=== PATIENT | female | born 1940 | race Caucasian/White ===

== ENCOUNTER 2018-05-30 06:17 | Emergency (ER) | payer OTHER ==
[~2018-05-30] VITALS: Ht 167.6 cm; Wt 131.5 kg
--- NOTE | ~2018-05-30 | EKG ---
[place] [address] 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 : 1940 Requested By: Jesse Farley Order Number: [id number] MD: Ghassan Edge Measurements Intervals [place] Rate: 64 P: -18 SC: 60 QRS: 5 QRSD: 118 T: 90 QT: 449 QTc: 464 Interpretive Statements Sinus rhythm Short SC interval Incomplete left bundle branch block Compared to ECG 05/11/2002 23:40:34 Short SC interval now present Left bundle-branch block now present Electronically Signed On 05-30-2018 13:53:34 CDT by Ghassan Edge [email or web address] <ELECTRONICALLY SIGNED> By: Ghassan Edge MD, [facility] 05/30/18 1353 0629 8 Ghassan Edge MD, [facility] /EPI
[~2018-05-30 06:17] MED LIST: ASPIRIN325; ATENOLOL; IBUPROFEN; K-DUR10 ME1; KEFLEX500 MG; LISINOPRIL-HCT1 EAC1; NORCO 5-325 TA1 EACH PO; PENICILLIN V P500 MG PO; PERCOCET 5-3251 EACH PO; PREVACID30 MG PO; TIROSINT112 MCG; TRIBENZOR 40-51 EACH PO
[2018-05-30 07:23] LABS: ABSOLUTE NEUTROPHILS 6.1 thou/uL (1.4-8.2); BASOPHILS 0.6 % (0.0-2.0); EOSINOPHILS 2.9 % (0.0-3.0); HEMATOCRIT 32.1 % (37.0-47.0); LYMPHOCYTES 28.3 % (24.0-44.0); MCH 40.5 pg (26.0-34.0); MCHC 43.6 g/dL (28.0-37.0); MCV 92.9 fL (80.0-100.0); MONOCYTES 8.4 % (1.0-8.0); PLATELET COUNT 185 thou/uL (150-400); POLYS 59.8 % (36.0-66.0); RBC 3.45 mil/uL (4.20-5.00); RDW 13.2 % (10.5-14.5); WBC 10.2 thou/uL (4.0-11.0)
[2018-05-30 07:24] LABS: CALCIUM 9.1 mg/dL (8.5-10.1); POTASSIUM 3.4 mmol/L (3.5-5.1)
[2018-05-30 07:30] LABS: ALBUMIN 3.6 g/dL (3.4-5.0); TOTAL BILIRUBIN 1.2 mg/dL (<0.1-1.0); TOTAL PROTEIN 7.2 g/dL (6.4-8.2)
[2018-05-30 08:29] LABS: URINE BILIRUBIN NEGATIVE (Negative); URINE BLOOD NEGATIVE (Negative); URINE CLARITY CLEAR; URINE COLOR YELLOW; URINE GLUCOSE-RANDOM* NEGATIVE (Negative); URINE KETONES NEGATIVE (Negative); URINE LEUKOCYTES-REFLEX NEGATIVE (Negative); URINE NITRITE-REFLEX NEGATIVE (Negative); URINE PROTEIN (DIPSTICK) NEGATIVE (Negative); URINE UROBILINOGEN 0.2 E.U./dl (0.2-1.0)
[2018-05-30] MEDS ORDERED: FLAGYL500 MG PO (10:41)
[2018-05-30] MEDS ORDERED: ULTRAM 50MG TAB50 MG PO (10:41)
[2018-05-30] MEDS ORDERED: CIPROFLOXACIN500 M1 PO (10:41)
[2018-05-30] MEDS ORDERED: ZOFRAN ODT4 MG PO (10:41)
[2018-05-30 11:01] VITALS: BP 154/61
== END 2018-05-30 11:02 | disposition home or self-care (01) ==
LOC: ER 06:17
PROVIDERS: Emergency Medicine
DX: K52.9 Noninfective gastroenteritis and colitis, unspecified (principal); E80.7 Disorder of bilirubin metabolism, unspecified; R74.8 Abnormal levels of other serum enzymes; Z88.8 Allergy status to other drugs, medicaments and biological substances; I10 Essential (primary) hypertension; E03.9 Hypothyroidism, unspecified; K21.9 Gastro-esophageal reflux disease without esophagitis; Z90.49 Acquired absence of other specified parts of digestive tract; Z90.710 Acquired absence of both cervix and uterus

== ENCOUNTER 2018-08-24 08:47 | Emergency (ER) | payer OTHER ==
[~2018-08-24] VITALS: Ht 167.6 cm; Wt 127.0 kg
--- NOTE | ~2018-08-24 | EKG ---
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 : 1940 Requested By: Yenni Charlton Order Number: [id number] MD: Ghassan Edge Measurements Intervals [place] Rate: 70 P: 52 ID: [id number] QRS: -11 QRSD: 118 T: 109 QT: 420 QTc: 454 Interpretive Statements Sinus rhythm Occasional atrial premature complexes Left bundle branch block Compared to ECG 05/30/2018 06:29:37 Atrial premature complexes now present Electronically Signed On 08-25-2018 8:00:21 CDT by Ghassan Edge [email or web address] <ELECTRONICALLY SIGNED> By: Ghassan Edge MD, [facility] 08/25/18 0800 Ghassan Edge MD, FAC /EPI
[~2018-08-24 08:47] MED LIST changes: +CIPROFLOXACIN500 M1 PO; +FLAGYL500 MG PO; +ULTRAM 50MG TAB50 MG PO; +ZOFRAN ODT4 MG PO
[2018-08-24 09:09] LABS: URINE BILIRUBIN NEGATIVE (Negative); URINE BLOOD NEGATIVE (Negative); URINE CLARITY CLEAR; URINE COLOR YELLOW; URINE GLUCOSE-RANDOM* NEGATIVE (Negative); URINE KETONES NEGATIVE (Negative); URINE LEUKOCYTES-REFLEX NEGATIVE (Negative); URINE NITRITE-REFLEX NEGATIVE (Negative); URINE PROTEIN (DIPSTICK) NEGATIVE (Negative); URINE UROBILINOGEN 0.2 E.U./dl (0.2-1.0)
[2018-08-24 09:11] LABS: HEMOGLOBIN 13.8 gm/dL (12.0-15.0)
[2018-08-24 09:13] LABS: BASOPHILS 0.8 % (0.0-2.0); EOSINOPHILS 3.1 % (0.0-3.0); HEMATOCRIT 36.8 % (37.0-47.0); LYMPHOCYTES 27.1 % (24.0-44.0); MCH 33.4 pg (26.0-34.0); MCHC 37.4 g/dL (28.0-37.0); MCV 89.2 fL (80.0-100.0); MONOCYTES 8.1 % (1.0-8.0); PLATELET COUNT 224 thou/uL (150-400); POLYS 60.9 % (36.0-66.0); RBC 4.12 mil/uL (4.20-5.00); RDW 13.5 % (10.5-14.5); WBC 9.8 thou/uL (4.0-11.0)
[2018-08-24 09:16] LABS: ANION GAP 14 mmol/L (7-16); BUN 13 mg/dL (7-18); CHLORIDE 104 mmol/L (98-107); CO2 25 mmol/L (21-32); GLUCOSE 178 mg/dL (74-106); SODIUM 143 mmol/L (136-145)
[2018-08-24 09:24] LABS: PROTIME 10.7 Seconds (9.3-11.4)
[2018-08-24 09:27] LABS: ALBUMIN 3.3 g/dL (3.4-5.0); SGOT 20 U/L (15-37); SGPT 25 U/L (30-65); TOTAL BILIRUBIN 0.6 mg/dL (<0.1-1.0); TOTAL PROTEIN 7.2 g/dL (6.4-8.2); TROPONIN-I <0.06 ng/mL (<0.06)
[2018-08-24 09:30] LABS: POTASSIUM 2.9 mmol/L (3.5-5.1)
[2018-08-24 09:33] LABS: ANISOCYTOSIS 1+; PLATELET ESTIMATE NORMAL
[2018-08-24] MEDS ORDERED: AMLODIPINE BESY10 MG PO (09:57)
[2018-08-24] MEDS ORDERED: BYSTOLIC 5 MG5 M1 PO (09:57)
[2018-08-24] MEDS ORDERED: LASIX 40 MG TAB40 M2 PO (09:58)
[2018-08-24] MEDS ORDERED: BUPROPION HCL150 M1 PO (09:58)
[2018-08-24] MEDS ORDERED: SYNTHROID137 MC1 PO (09:58)
[2018-08-24] MEDS ORDERED: PRAVACHOL40 MG PO (09:58)
[2018-08-24] MEDS ORDERED: KLOR-CON M2020 MEQ PO (09:59)
[2018-08-24] MEDS ORDERED: OMEPRAZOLE20 MG PO (10:15)
[2018-08-24] MEDS ORDERED: AVALIDE 300-121 EACH PO (10:15)
[2018-08-24] MEDS ORDERED: UNICOMPLEX M TA1 TA1 PO (10:15)
[2018-08-24] MEDS ORDERED: ASPIR 8181 MG PO (10:15)
[2018-08-24 10:20] VITALS: BP 119/50
== END 2018-08-24 10:25 | disposition home or self-care (01) ==
LOC: ER 08:47
PROVIDERS: Physician Assistant
DX: E87.6 Hypokalemia (principal); E83.42 Hypomagnesemia; R07.9 Chest pain, unspecified; I10 Essential (primary) hypertension; E03.9 Hypothyroidism, unspecified; E78.00 Pure hypercholesterolemia, unspecified; Z90.710 Acquired absence of both cervix and uterus; Z88.8 Allergy status to other drugs, medicaments and biological substances

== ENCOUNTER → 2018-09-21 | Outpatient (CLI) | payer OTHER ==
[~2018-09-21] MED LIST changes: +AMLODIPINE BESY10 MG PO; +ASPIR 8181 MG PO; +AVALIDE 300-121 EACH PO; +BUPROPION HCL150 M1 PO; +BYSTOLIC 5 MG5 M1 PO; +KLOR-CON M2020 MEQ PO; +LASIX 40 MG TAB40 M2 PO; +OMEPRAZOLE20 MG PO; +PRAVACHOL40 MG PO; +SYNTHROID137 MC1 PO; +UNICOMPLEX M TA1 TA1 PO
--- NOTE | ~2018-09-21 | 2DMMODE ---
[facility] [place] [address] 2 D/M-MODE ECHOCARDIOGRAM Name: MARISSA DOUGLAS Room #: REG [facility]#: [id number] Admission: 09/21/18 Attend Phys: Espinoza Conti, Discharge: Date of : 44 Date of Service: 09/21/18 1702 Report #: [id number] THIS REPORT FOR: //name// ADDENDUM APPROVED REPORT Study performed: 09/21/2018 10:54:18 EXAM: Comprehensive 2D, Doppler, and color-flow Echocardiogram Patient Location: Out-Patient Status: routine BSA: 2.31 HR: 52 bpm BP: 116/70 mmHg Rhythm: NSR Other Information Study Quality: Adequate 2D Dimensions RVDd: 32.85 mm IVSd: 12.70 (7-11mm) LVOT Diam: 19.73 (18-24mm) LVDd: 54.06 mm PWd: 12.56 (7-11mm) Ascending Ao: 30.56 (22-36mm) LVDs: 30.92 (25-40mm) Left Atrium: 43.91 (27-40mm) Aortic Root: 29.09 mm LV Single Plane 4CH: 74.36 % LV Single Plane 2CH: 58.54 % Volumes Left Atrial Volume (Systole) Single Plane 4CH: 72.07 mL Single Plane 2CH: 33.44 mL Aortic Valve AoV Peak Walt.: 4.14 m/s AO Peak Gr.: 68.44 mmHg LVOT Max P.07 mmHg AO Mean Gr.: 37.76 mmHg LVOT Mean P.08 mmHg AO V2 Mean: 2.90 m/s LVOT Max V: 1.01 m/s AO V2 VTI: 106.21 cm LVOT Mean V: 0.65 m/s KAREN (VTI): 0.71 cm2 LVOT V1 VTI: 24.66 cm KAREN Vmax: 0.75 cm2 AI Vmax: 4.39 m/s SV (LVOT): 75.37 mL AI [place]: 2.17 m/s2 AI PHT: 608.04 ms [facility] [employer] [address] 2 D/M-MODE ECHOCARDIOGRAM Name: MARISSA DOUGLAS Room #: REG CL [facility]#: [id number] Admission: 09/21/18 Attend Phys: Espinoaz Conti, Discharge: Date of : 44 Date of Service: 09/21/18 1702 Report #: [id number] Mitral Valve MV Peak Gr.: 14.12 mmHg MV Mean Gr.: 6.05 mmHg E/A Ratio: 1.2 MV Decel. Time: 468.56 ms MV E Max Walt.: 1.68 m/s MV A Walt.: 1.39 m/s MV Max Walt.: 1.88 m/s MV Mean Walt.: 1.15 m/s MV VTI: 764.75 mm MVA VTI: 98.56 mm2 MV PHT: 135.88 ms MVA (PHT): 1.66 cm2 IVRT: 66.90 ms Pulmonary Valve PV Peak Walt.: 1.25 m/s PV Peak Gr.: 6.27 mmHg NE End Vmax: 1.22 m/s Pulmonary Vein P Vein S: 0.54 m/s P Vein A: 0.29 m/s P Vein D: 0.43 m/s P Vein A Dur.: 145.3 msec P Vein S/D Ratio: 1.26 Tricuspid Valve TR Peak Walt.: 2.81 m/s TR Peak Gr.: 31.57 mmHg Left Ventricle The left ventricle is normal size. Mild concentric left ventricular hypertrophy. The left ventricular systolic function is normal. The left ventricular ejection fraction is within the normal range. LVEF is 65-70%. Right Ventricle The right ventricle is normal size. The right ventricular systolic function is normal. Atria Left atrium is dilated. The right atrium size is normal. Aortic Valve Severe aortic valve sclerosis. Moderate aortic regurgitation. There is severe valvular aortic stenosis. Calculated aortic valve area is 0.7 cm2 with maximum pressure gradient of mmHg and mean pressure gradient of mmHg. There is severe valvular aortic stenosis. [facility] [address] [place] [address] 2 D/M-MODE ECHOCARDIOGRAM Name: MARISSA DOUGLAS Room #: REG [facility] Barry#: [id number] Admission: 09/21/18 Attend Phys: Espinoza Conti, Discharge: Date of : 44 Date of Service: 09/21/18 1702 Report #: [id number] Calculated aortic valve area is 0.7 cm2 with maximum pressure gradient of 38 mmHg and mean pressure gradient of 68 mmHg. Mitral Valve There is mitral annular calcification. Mild mitral regurgitation. Both leaflets of the mitral valve are calcified. Tricuspid Valve Mild tricuspid regurgitation. Pulmonic Valve The pulmonary valve is normal in structure. There is no pulmonic valvular regurgitation. Great Vessels IVC is normal in size and collapses >50% with inspiration. Pericardium no effusion <Conclusion> The left ventricle is normal size. Mild concentric left ventricular hypertrophy. LVEF is 65-70%. The right ventricle is normal size. Left atrium is dilated. The right atrium size is normal. Severe aortic valve sclerosis. Moderate aortic regurgitation. There is severe valvular aortic stenosis. Calculated aortic valve area is 0.7 cm2 with maximum pressure gradient of mmHg and mean pressure gradient of mmHg. There is severe valvular aortic stenosis. Calculated aortic valve area is 0.7 cm2 with maximum pressure gradient of 38 mmHg and mean pressure gradient of 68 mmHg. There is mitral annular calcification. Mild mitral regurgitation. There is severe valvular aortic stenosis. Calculated aortic valve area is 0.7 cm2 with maximum pressure gradient of mmHg and mean pressure gradient of mmHg. There is severe valvular aortic stenosis. Calculated aortic valve area is 0.7 cm2 with maximum pressure gradient of 38 mmHg and mean pressure gradient of 68 mmHg. Mild tricuspid regurgitation. [facility] [address] [place] [address] 2 D/M-MODE ECHOCARDIOGRAM Name: MARISSA DOUGLAS Room #: REG M.R.#: [id number] Admission: 09/21/18 Attend Phys: Espinoza Conti, Discharge: Date of : 44 Date of Service: 09/21/181701 Report #: [id number] no effusion <ELECTRONICALLY SIGNED> By: Espinoza Conti MD, FACC 09/21/181701 01 01 Espinoza Conti MD, FACC /INF
== END ==
LOC: CV 09:52
DX: I08.3 Combined rheumatic disorders of mitral, aortic and tricuspid valves (principal); I10 Essential (primary) hypertension

== ENCOUNTER 2020-03-09 16:24 | Inpatient (IN) | payer MEDICARE ==
[~2020-03-09] VITALS: Ht 167.6 cm; Wt 109.8 kg
--- NOTE | ~2020-03-09 | HC ---
[facility] [address] [place] [address] CONSULTATION Name: MARISSA DOUGLAS Room #: 443-P ADM IN M.R.#: [id number] Admission: 03/09/20 Attend Phys: Olu Cortez MD Discharge: Date of : 44 Report #: [id number] THIS REPORT FOR: cc: Deborah Higuera MD,Deborah Carranza,Donovan Wu MD ~ CC: Deboarh Cortez DATE OF SERVICE: 03/11/2020 GI CONSULT HISTORY OF PRESENT ILLNESS: The patient is a very pleasant 79-year-old female we have been asked to see for further evaluation of her abdominal pain and constipation. She has been corrected from a constipation standpoint as an outpatient and did have some diarrhea with MiraLax. Her medical history is well detailed in the chart, but includes hypertension, hypothyroidism, heart murmur, hysterectomy, cholecystectomy, diverticulitis. She denies significant alcohol or tobacco consumption. MEDICATIONS: Include Bystolic, amlodipine, Lasix, bupropion, Pravachol, Synthroid, Klor-Con, omeprazole, aspirin. ALLERGIES: She is allergic to COMPAZINE. REVIEW OF SYSTEMS: Negative for weight loss, weakness or fatigue. She denies head, eyes, ears, nose or throat complaints. Denies chest pain, chest palpitation, chest pressure, cough, shortness of breath, wheezing, genitourinary, musculoskeletal or neuropsychiatric complaints otherwise. PHYSICAL EXAMINATION: VITAL SIGNS: Afebrile. Vital signs, stable. ABDOMEN: Soft, nontender abdomen currently. PERTINENT LABORATORY DATA: Include white count 12.1, hemoglobin 13.9, normal differential. Chemistry: Potassium 3.2. Liver tests and lipase normal. CT abdomen; suspicious small bowel ileus without bowel obstruction and hepatic steatosis present. ASSESSMENT: In summary, the patient has constipation causing abdominal pain. Her abdominal pain is currently gone after treatment of her constipation. She claimed that MiraLax was too much medicine for her and that it caused diarrhea and for this reason, I would do MiraLax every other day, then to help prevent her constipation. She should have a colonoscopy done as an outpatient, which [address] [address] CONSULTATION Name: MARISSA DOUGLAS Room #: 443-P ADM IN M.R.#: [id number] Admission: 03/09/20 Attend Phys: Olu Cortez MD Discharge: Date of : 44 Report #: [id number] can be done in the next couple of weeks. I appreciate the opportunity to participate in her care. We will be available as needed, but will sign off. By: 1459 [id number] Donovan Carranza MD /nt
[2020-03-09 16:29] VITALS: BP 115/63
[2020-03-09 17:44] LABS: ABSOLUTE NEUTROPHILS 7.8 thou/uL (1.4-8.2); BASOPHILS 0.6 % (0.0-2.0); EOSINOPHILS 1.8 % (0.0-3.0); HEMATOCRIT 39.7 % (37.0-47.0); HEMOGLOBIN 13.9 gm/dL (12.0-15.0); LYMPHOCYTES 23.8 % (24.0-44.0); MCH 30.5 pg (26.0-34.0); MCV 87.1 fL (80.0-100.0); MONOCYTES 9.5 % (1.0-8.0); PLATELET COUNT 213 thou/uL (150-400); POLYS 64.3 % (36.0-66.0); RBC 4.56 mil/uL (4.20-5.00); RDW 13.3 % (10.5-14.5); WBC 12.1 thou/uL (4.0-11.0)
[2020-03-09 17:57] LABS: ALBUMIN 3.3 g/dL (3.4-5.0); CALCIUM 8.6 mg/dL (8.5-10.1); TOTAL BILIRUBIN 0.6 mg/dL (<0.1-1.0); TOTAL PROTEIN 7.4 g/dL (6.4-8.2)
[2020-03-09 18:11] LABS: POTASSIUM 2.7 mmol/L (3.5-5.1)
[2020-03-09 20:05] VITALS: BP 169/58
[2020-03-09 20:30] VITALS: BP 151/74
[2020-03-09 20:45] VITALS: BP 169/51
--- NOTE | 2020-03-09 23:44 | NUR ---
ADMISSION ASSESSMENT COMPLETED.PT IS ALERT AND ORIENTED. REQUIRES SBA TO THE BEDSIDE COMMODE. SHE HAD A LOOSE STOOL SO FAR-GREENISH GREYISH IN COLOR. PT DENIES PAIN. NO FEVER OR SOA. SHE IS NPO. IVF INFUSING WELL ELECTROLYTE REPLACEMENT.FALL PREC IN PLACE. WILL CONTINUE WITH POC TILL EOS.
[2020-03-10 05:18] LABS: HEMATOCRIT 37.3 % (37.0-47.0); HEMOGLOBIN 13.5 gm/dL (12.0-15.0); MCH 31.9 pg (26.0-34.0); MCHC 36.1 g/dL (28.0-37.0); MCV 88.3 fL (80.0-100.0); RBC 4.23 mil/uL (4.20-5.00); RDW 13.6 % (10.5-14.5); WBC 12.3 thou/uL (4.0-11.0)
[2020-03-10 05:24] VITALS: BP 139/44
[2020-03-10 05:39] LABS: CALCIUM 8.4 mg/dL (8.5-10.1); CREATININE 0.8 mg/dL (0.6-1.0)
[2020-03-10 05:52] LABS: POTASSIUM 2.8 mmol/L (3.5-5.1)
[2020-03-10 08:00] VITALS: BP 141/42
--- NOTE | 2020-03-10 09:59 | EKG ---
[facility] [place] [address] ELECTROCARDIOGRAM REPORT Name: MARISSA DOUGLAS Room #: 443-P ADM IN M.R.#: [id number] Admission: 03/09/20 Attend Phys: Olu Cortez MD Discharge: Date of : 44 Report #: [id number] THIS REPORT FOR: cc: Deborah Higuera MD, Michelle R. 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 : 1940 Requested By: Yenni Charlton Order Number: [id number] MD: Ghassan Edge Measurements Intervals [place] Rate: 71 P: 6 KS: 153 QRS: -8 QRSD: 113 T: QT: 455 QTc: 495 Interpretive Statements Sinus rhythm Nonspecific intraventricular conduction delay Nonspecific ST and T wave abnormality No previous ECGs available for comparison Electronically Signed On 03-10-2020 9:57:24 CDT by Ghassan Edge [email or web address] <ELECTRONICALLY SIGNED> By: Ghassan Edge MD, [facility] 03/10/20 0957 1853 1853 Ghassan Edge MD, [facility] /EPI
[2020-03-10 16:17] VITALS: BP 121/77
--- NOTE | 2020-03-10 16:20 | NUR ---
Assumed patient care at 0700. Patient AxOx4. NPO, denies pain.Potassium administered IV due to potassium level being 2.8. lab rechecked 3.3, one more potassium bag administered per doctor order. Doctor stated she will put order for labs to check potassium tomorrow morning. IV fluids infusing.GI consulted. Call light within reach. Will continue to monitor.
[2020-03-10 16:53] LABS: URINE BILIRUBIN NEGATIVE (Negative); URINE BLOOD TRACE (Negative); URINE CLARITY CLEAR; URINE COLOR YELLOW; URINE GLUCOSE-RANDOM* NEGATIVE (Negative); URINE KETONES TRACE (Negative); URINE LEUKOCYTES-REFLEX 1+ (Negative); URINE NITRITE-REFLEX NEGATIVE (Negative); URINE PROTEIN (DIPSTICK) NEGATIVE (Negative); URINE UROBILINOGEN 0.2 E.U./dl (0.2-1.0)
[2020-03-10 17:00] LABS: CASTS None Seen /LPF (None Seen); SQUAMOUS >10 Many /LPF (0-3)
[2020-03-10 17:01] LABS: BACTERIA-REFLEX 1-9 Few /HPF (None Seen); CRYSTALS None Seen /LPF (None Seen); URINE RBC 0-2 Rare /HPF (0-2); URINE WBC-REFLEX 6-15 Few /HPF (0-5)
[2020-03-10 20:20] VITALS: BP 161/49
[2020-03-11 04:35] VITALS: BP 138/62
--- NOTE | 2020-03-11 04:40 | NUR ---
PT IS ALERT AND ORIENTED. JUST SAD THAT SHE IS HERE FOR MOTHERS DAY. WOULD REALLY LIKE TO EAT AND ALSO GO HOME. EDUCATION PROVIDED. PT DID BETTER OVERALL WITH TRANSFERS TO THE BED AND TO THE COMMODE. PT STILL C/O GENERALISED ARTHRITIS PAIN. NO STOOLS THIS SHIFT. SHE DENIES ANY NAUSEA OR VOMITING.WILL CONTINUE WITH POC TILL EOS.
[2020-03-11 07:51] VITALS: BP 136/51
[2020-03-11 09:11] LABS: HEMATOCRIT 35.2 % (37.0-47.0); HEMOGLOBIN 12.8 gm/dL (12.0-15.0); MCH 32.9 pg (26.0-34.0); MCHC 36.4 g/dL (28.0-37.0); MCV 90.4 fL (80.0-100.0); RDW 13.6 % (10.5-14.5); WBC 8.2 thou/uL (4.0-11.0)
[2020-03-11 09:33] LABS: CALCIUM 8.3 mg/dL (8.5-10.1); CREATININE 0.7 mg/dL (0.6-1.0); MAGNESIUM 1.9 mg/dL (1.8-2.4); PHOSPHORUS 3.2 mg/dL (2.5-4.9); POTASSIUM 3.2 mmol/L (3.5-5.1)
[2020-03-11 09:55] LABS: TSH 1.079 uIU/mL (0.358-3.740)
[2020-03-11 10:56] LABS: FOLIC ACID 18.6 ng/mL (8.6-58.9)
[2020-03-11 12:07] LABS: ABSOLUTE NEUTROPHILS 4.9 thou/uL (1.4-8.2)
[2020-03-11 12:08] LABS: ANISOCYTOSIS 1+
[2020-03-11 12:09] LABS: PLATELET COUNT 191 thou/uL (150-400); PLATELET ESTIMATE NORMAL
[2020-03-11 14:53] VITALS: BP 143/43
--- NOTE | 2020-03-11 16:00 | NUR ---
ASSUMED PATIENT CARE AT 0700. CONCERNS TO GO HOME.C-DIF PRESUMPTIVE PATIENT TOLERATED FULL LIQUID DIET WELL. POTASSIUM LEVEL TESTED AND WAS 3.2. VERBALLY ORDERED POTASSIUM 40 meq (TAB) x2. FLUID RESTRICTION OF 1200ML. HAD BOWEL MOVEMENT AND STOOL SENT TO LAB FOR C-DEF TEST AROUND 1430. STOOL DARK GREENISH BLACK IN COLOR. DENIES N/V OR PAIN. DIET ADVANCE TO REGULAR PER DR ORDER. ENCOURAGED TO AMBULATE.
[2020-03-11 20:35] VITALS: BP 134/59
--- NOTE | 2020-03-11 22:48 | NUR ---
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
[2020-03-12 03:35] VITALS: BP 131/60
[2020-03-12 06:05] LABS: MCHC 38.3 g/dL (28.0-37.0); RBC 3.72 mil/uL (4.20-5.00)
[2020-03-12 06:07] LABS: MCH 34.9 pg (26.0-34.0); MCV 91.2 fL (80.0-100.0); RDW 13.6 % (10.5-14.5); WBC 6.7 thou/uL (4.0-11.0)
[2020-03-12 06:30] LABS: CALCIUM 8.9 mg/dL (8.5-10.1); CREATININE 0.8 mg/dL (0.6-1.0); POTASSIUM 4.1 mmol/L (3.5-5.1)
[2020-03-12 08:22] VITALS: BP 102/47
--- NOTE | 2020-03-12 13:17 | NUR ---
chart review. cm visited with serge via phone. intro to cm and dcp. pt is a & o x 3 with some from forgetfulness at time. she reported " live at home with 2 daughters. 1 is disabled. they both help out at home. have not driving in 4 years. have fww, 4ww, cane, bsc, shower chair, toilet rise. chair life, power chair. have ramp. 15 steps with handrail to basement for laundry, my daughter stephan does that. not been to basement in 4 years. no rehab in past and i would not go to rehab either. i am ready to go home"/serge. cm passed on to bedside nurse that pt wanted to know if she was going to get to go home today. will cont following as needed for dc needs.
[2020-03-12] MEDS ORDERED: MIRALAX119 GM PO (14:02)
[2020-03-12 14:18] VITALS: BP 102/47
--- NOTE | 2020-03-12 17:26 | NUR ---
ASSUMED CARE OF THE PT AT 0700. PT IS VERY UPSET CRYING STATING,"I WANT TO GO HOME". PT USES BEDSIDE COMMODE WITH GAIT BELT AND WALKER. FEET ARE SWOLLEN WITH 1+ EDEMA AND REDNESS. PT IS ON FLUID RESTRICTIONS, TOTAL OF 940 TODAY BEFORE DISCHARGING. PT DISCHARGED TO HOME, NO IV ACCESS, DAUGHTER CAME TO ROOFER METAL PT AND D/C PPWK SIGNED. RX'S SENT TO PTS PHARMACY.
== END 2020-03-12 16:00 | disposition home or self-care (01) | DRG 389 ==
LOC: ER 16:24 → EROBS 19:12 → 4S 19:12
PROVIDERS: Internal Medicine; Nurse Practitioner Family; Physician Assistant; ADMIT Internal Medicine
DX: K56.7 Ileus, unspecified (principal); N39.0 Urinary tract infection, site not specified; I35.0 Nonrheumatic aortic (valve) stenosis; E87.6 Hypokalemia; K76.0 Fatty (change of) liver, not elsewhere classified; I11.9 Hypertensive heart disease without heart failure; E03.9 Hypothyroidism, unspecified; Z90.49 Acquired absence of other specified parts of digestive tract; Z79.899 Other long term (current) drug therapy; Z79.82 Long term (current) use of aspirin; Z88.8 Allergy status to other drugs, medicaments and biological substances; Z90.711 Acquired absence of uterus with remaining cervical stump
CPT/HCPCS: 10195

== ENCOUNTER → 2020-04-23 | Outpatient (CLI) | payer MEDICARE ==
[~2020-04-23] MED LIST changes: +MIRALAX119 GM PO
== END ==
LOC: SJCVC 12:12
PROVIDERS: ATTEND Internal Medicine Cardiovascular Disease
DX: R00.1 Bradycardia, unspecified (principal); R94.31 Abnormal electrocardiogram [ECG] [EKG]; I35.0 Nonrheumatic aortic (valve) stenosis; I10 Essential (primary) hypertension; E78.00 Pure hypercholesterolemia, unspecified; M19.90 Unspecified osteoarthritis, unspecified site; E03.9 Hypothyroidism, unspecified; K21.9 Gastro-esophageal reflux disease without esophagitis; E66.9 Obesity, unspecified; Z79.82 Long term (current) use of aspirin; Z79.899 Other long term (current) drug therapy; Z82.49 Family history of ischemic heart disease and other diseases of the circulatory system

== ENCOUNTER → 2020-11-12 | Outpatient (CLI) | payer MEDICARE | LOC: SJCVC 15:49 | PROVIDERS: ATTEND Internal Medicine Cardiovascular Disease | DX: R94.31 Abnormal electrocardiogram [ECG] [EKG] (principal); I44.7 Left bundle-branch block, unspecified; I35.0 Nonrheumatic aortic (valve) stenosis; I10 Essential (primary) hypertension; E78.00 Pure hypercholesterolemia, unspecified; E66.9 Obesity, unspecified; M19.90 Unspecified osteoarthritis, unspecified site; R60.9 Edema, unspecified; Z79.82 Long term (current) use of aspirin; Z79.899 Other long term (current) drug therapy ==